=== PATIENT | male | born 2000 | race African-American/Black ===

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

== ENCOUNTER 2022-11-19 18:02 | Emergency (ER) | payer OTHER, SELFPAY ==
--- NOTE | ~2022-11-19 | CT_ITS ---
CT scan of the Neck Technique: 2.5 mm axial scans were obtained through the neck after intravenous administration of 75 c c Omnipaque 350. Coronal and sagittal reconstructions of the neck were obtained. Dose reduction techn ique was used on this scan by utilizing automated exposure control and iterative reconstruction techn ique. The dose-length product (DLP) was 400.13 mGy-cm. Clinical History: Sore throat Findings: There is no evidence of any significant cervical lymphadenopathy. Several small, nonenlarged jugulo- digastric and posterior cervical lymph nodes are noted bilaterally. Parapharyngeal spaces appear norm al bilaterally. The parotid and submandibular glands appear normal. There is mild enlargement of the palatine tonsils without evidence of abscess. No soft tissue masses are seen in the neck. The thyroid gland appears normal. Images of the lung apices reveal no abnormalities. Impression: Possible palatine tonsillitis. No abscess. Reviewed, dictated and finalized at [facility]. Impression: Possible palatine tonsillitis. No abscess.
[2022-11-19 18:16] VITALS: BP 112/78; PULSE 30; RESP 16; TEMP 36.8; O2SAT 100
--- NOTE | 2022-11-19 18:21 | ECG_ITS ---
Measurements Intervals [place] Rate: 90 P: 74 KS: 136 QRS: 7 QRSD: 106 T: 26 QT: 380 QTc: 467 Interpretive Statements SINUS RHYTHM FREQUENT ATRIAL AND VENTRICULAR PREMATURE COMPLEXES BORDERLINE T WAVE ABNORMALITY- INFERIOR LEADS ABNORMAL ECG NO PREVIOUS ECG AVAILABLE FOR COMPARISON Electronically Signed On 11-19-2022 21:06:19 CDT by Winston Crawley D.O.
[2022-11-19 18:22] LABS: Glucose Point of Care 429 mg/dl (65-105)
[2022-11-19 18:40] VITALS: BP 123/81; PULSE 78; RESP 16; O2SAT 100
[2022-11-19 18:46] VITALS: BP 118/84; PULSE 100; RESP 17; O2SAT 100
[2022-11-19 19:18] LABS: Basophils Percent Auto 0.4 % (0.2-1.2); Eosinophils Percent Auto 0.1 % (0-4.4); Hematocrit 48.5 % (42.0-52.0); Hemoglobin 16.5 g/dL (14.0-18.0); Immature Granulocyte Absolute 0.01 K/mm3 (0.00-0.031); Immature Granulocyte Percent A 0.1 % (0-0.5); Immature Platelet Fraction Pct 3.6 % (0.9-11.2); Lymphocytes Absolute Auto 2.05 K/mm3 (0.9-3.2); Lymphocytes Percent Auto 29.4 % (18.3-44.2); Mean Corpuscular Hemoglobin 31.4 pg (26-34); Mean Corpuscular Volume 92.4 fl (80-100); Mean Platelet Volume 10.6 fl (7.4-10.4); Monocytes Absolute Auto 0.7 K/mm3 (0.1-0.6); Monocytes Percent Auto 9.5 % (2.6-8.5); Neutrophils Absolute Auto 4.2 K/mm3 (1.3-6.7); Neutrophils Percent Auto 60.5 % (45.5-73.1); Platelet Count Result 243 k/mm3 (150-375); Red Blood Count 5.25 M/mm3 (4.6-6.20); Red Cell Distribution Width 12.2 % (11.5-14.5)
--- NOTE | 2022-11-19 19:25 | ED.GENADULT ---
HPI - General Adult General Chief complaint: Upper Respiratory Infection Stated complaint: sore throat Time Seen by Provider: 11/19/22 19:02 Source: patient, RN notes reviewed and old records reviewed Mode of arrival: ambulatory Limitations: no limitations History of Present Illness HPI narrative: This is a 22 year old male with IDDM who presents for evaluation of URI symptoms and hyperglycemia. His mother states patient complained of sore throat this morning. PAtient states he did not feel well yesterday. He denies nausea, vomiting, diarrhea, shortness of breath. His blood sugar has been high today, and he states he has not had anything to eat. PAtient has also not given himself his insulin today. HE denies any sick contacts. see downtime sheet as well. Related Data Home Medications Medication Instructions Recorded Confirmed insulin glargine 100 unit/mL (3 30 unit subcut DAILY 09/14/20 09/14/20 mL) subcutaneous pen (Basaglar KwikPen U-100 Insulin) insulin lispro 100 unit/mL unit subcut 09/14/20 subcutaneous pen (Admelog SoloStar U-100 Insulin lispro) Allergies Allergy/AdvReac Type Severity Reaction Status Date / Time No Known Allergies Allergy Verified 11/19/22 20:30 Review of Systems Constitutional: Constitutional: Reports fatigue and Denies weakness ENT: Reports nasal congestion Cardiovascular: Cardiovascular: Denies syncope, Denies rapid heart rate, Denies irregular heart rhythm, Denies leg edema and Denies dyspnea Respiratory: Respiratory: Denies chest congestion, Denies hemoptysis, Denies excessive phlegm production and Denies dyspnea Gastrointestinal: Gastrointestinal: Denies abdominal pain, Denies hematochezia, Denies diarrhea and Denies vomiting Genitourinary: Genitourinary: Denies hematuria, Denies dysuria, Denies penile discharge and Denies testicular pain Musculoskeletal: Musculoskeletal: Denies joint swelling, Denies loss of height and Denies muscle weakness Neurologic: Denies syncope, Denies focal weakness and Denies weakness PMFSH Past Medical History Medical History (Updated 11/20/22 @ 04:52 by Vivien Hairston MD) Insulin dependent diabetes mellitus Surgical History Surgical History (Updated 11/19/22 @ 19:27 by Vivien Hairston MD) No significant past surgical history Social History Social History (Updated 11/19/22 @ 19:27 by Vivien Hairston MD) Smoking status: Never smoker Exam Const: General: alert Nutritional Appearance: well nourished Orientation/consciousness: patient oriented x3 HENMT: Head: normal to inspection Ears: TM's normal bilaterally Face and sinus: normal facial exam Mouth: Yes lip normal, Yes moist mucous membranes and Yes Abnormal oral and palatal mucosa present (although difficulty opening mouth completely) erythematous Throat: uvula midline Eyes: Pupils: Equal, round and reactive pupils present EOM: EOMs intact bilaterally Neck: Neck: lymphadenopathy (right anterior cervical) right anterior cervical normal Chest: Chest palpation & inspection: normal inspection of the chest Resp: Effort & Inspection: normal respiratory effort Auscultation: clear to auscultation bilaterally Cardio: Rate: regular rate Rhythm: regular rhythm Heart sounds: no murmurs GI: GI Palp: Yes Soft to palpation, No Tenderness to palpation present (GI), No Guarding due to palpation present (GI) and No Rigid due to palpation Auscultation: normal bowel sounds Skin: General skin exam: normal color Rashes: no rashes Wounds: no wounds Neuro: General: patient oriented x3 and moves all extremities Cranial nerves: Yes Nystagmus not present Speech: normal speech Gait exam (Neuro): Normal gait present Extrem: General: normal to inspection Psych: Mental Status: mental status grossly normal Affect: normal affect Attitude: cooperative Course Reevaluation(s) Reevaluation #1: see downtime chart Vital Signs Vital signs: Vital Signs Temper
[2022-11-19 19:30] LABS: Strep Group A RT-PCR Not Detected (Negative)
[2022-11-19] MEDS: SODIUM CHLORIDE 0.9% IV 1,000 ML 999 ML IV CONT ×2 (19:41→19:46)
[2022-11-19 20:01] LABS: Platelet Estimate Adequate (Adequate)
[2022-11-19 20:02] LABS: Burr Cells 1+ (NORMAL); Poikilocytosis 1+ (NORMAL); Schistocytes None Seen (NORMAL)
[2022-11-19 20:06] LABS: Appearance Urine Clear (Clear); Bilirubin Urine Negative (Negative); Blood Urine Negative (Negative); Color Urine Yellow (Yellow); Glucose Urine UA 3+ mg/dL (Negative); Ketones Urine 3+ mg/dL (Negative); Leukocyte Esterase Ur Negative LEU/UL (Negative); Nitrate Urine Negative (Negative); Protein Urine Negative (Negative); Urobilinogen Urine 0.2 mg/dL (<2.0); pH Urine 5.5 (5.0-9.0)
[2022-11-19 20:13] LABS: Phosphorus 3.7 mg/dL (2.5-4.5)
[2022-11-19 20:17] LABS: Beta-Hydroxybutyrate/Acetoacetate 3.41 mmol/L (0.02-0.27)
[2022-11-19 20:18] LABS: Specific Grav Ur 1.053 (1.001-1.035)
[2022-11-19 20:20] LABS: Alanine Aminotransferase 78 U/L (6-50); Alkaline Phosphatase 102 U/L (38-126); Anion Gap 11 mmol/L (8-16); Aspartate Amino Transferase 41 U/L (17-59); Bilirubin,Total 1.1 mg/dL (0.2-1.3); Blood Urea Nitrogen 9 mg/dL (9-20); Calcium 8.2 mg/dL (8.4-10.2); Carbon Dioxide 25 mmol/L (22-30); Chloride 97 mmol/L (98-107); Estimated CRCL calculation 156 ml/min; Estimated Glomerular Filt Rate > 60; Glucose 340 mg/dL (65-110); Sodium 133 mmol/L (137-145)
[2022-11-19 20:22] VITALS: BP 121/87; PULSE 76; RESP 18; O2SAT 100
[2022-11-19 20:23] LABS: Add Urine Microscopic? NO
[2022-11-19] MEDS: INSULIN HUMAN REGULAR (*BKC) 100 UNITS/ML 10 UNITS SUB-Q (21:12)
[2022-11-20 04:11] LABS: Glucose Point of Care 85 mg/dl (65-105)
[2022-11-20 04:11] LABS: Glucose Point of Care 83 mg/dl (65-105)
[2022-11-20 04:32] LABS: Glucose Point of Care 173 mg/dl (65-105)
[2022-11-20 08:24] LABS: Monoscreen Negative (Negative); Negative Monotest Control Negative (Negative); Positive Monotest Control Positive (Positive)
[2022-11-20 08:25] LABS: Influenza A QL RT-PCR Negative (Negative); Influenza B QL RT-PCR Negative (Negative)
[2022-11-20 08:27] LABS: SARS-CoV-2 RNA PCR Positive (Negative)
[2022-11-20 08:29] LABS: Anion Gap 6 mmol/L (8-16); Blood Urea Nitrogen 8 mg/dL (9-20); Calcium 7.7 mg/dL (8.4-10.2); Carbon Dioxide 25 mmol/L (22-30); Chloride 104 mmol/L (98-107); Estimated CRCL calculation 224 ml/min; Estimated Glomerular Filt Rate > 60; Glucose 66 mg/dL (65-110); Potassium 3.3 mmol/L (3.4-5.0); Sodium 135 mmol/L (137-145)
== END 2022-11-20 04:53 | disposition home or self-care (01) ==
PROVIDERS: Family Medicine; Emergency Provider General Practice; PCP Pediatrics
DX: U07.1 COVID-19 (principal); E10.65 Type 1 diabetes mellitus with hyperglycemia; Z79.4 Long term (current) use of insulin; R94.31 Abnormal electrocardiogram [ECG] [EKG]; I49.1 Atrial premature depolarization; I49.3 Ventricular premature depolarization
CPT/HCPCS: 36415; 70491; 80048; 80053; 81003; 82010; 82948; 83735; 84100; 85025; 85055; 86308; 87636; 87651; 93005; 96360; 96361; 99284; J1815; J1885; J7030; Q9967